=== PATIENT | female | born 1970 | race Caucasian/White ===

== ENCOUNTER 2017-03-23 07:46 | Emergency (ER) | payer MEDICAID ==
[~2017-03-23] VITALS: Ht 154.9 cm; Wt 68.0 kg
[2017-03-23 07:51] VITALS: BP 128/98
--- NOTE | 2017-03-23 07:55 | NUR ---
Patient ambulated to bed 03.
--- NOTE | 2017-03-23 07:59 | NUR ---
PATIENT PRESENTS TO ED WITH C/O COUGH X2 WEEKS . PT STATES THE COUGH IS NON-PRODUCTIVE. PT ALSO STATES SHE NOTICED HER RIGHT EYE WAS RED WELL THIS AM . DENIES N/V/D; SKIN IS PINK/WARM/DRY; AAOX4 WITH EVEN AND STEADY GAIT; LUNGS CLEAR BL; HR EVEN AND REGULAR; PT DENIES ANY FEVER, CP OR SOB AT THIS TIME; PATIENT C/O HEADACHE PAIN OF 5/10 AT THIS TIME; VSS; PATIENT POSITIONED FOR COMFORT; HOB ELEVATED; BEDRAILS UP X2; BED DOWN. ER MD MADE AWARE OF PT STATUS.
--- NOTE | 2017-03-23 08:09 | NUR ---
X-RAY AT BEDSIDE.
--- NOTE | 2017-03-23 08:45 | NUR ---
PT RESTING QUIETLY ON [place].
--- NOTE | 2017-03-23 09:11 | NUR ---
[place]. EVALUATING PT AT BEDSIDE.
--- NOTE | 2017-03-23 09:11 | NUR ---
Dr. Mendoza evaluating patient at bedside.
[2017-03-23] MEDS ORDERED: KETOROLAC 60 MG/2 ML VIAL IM ONE (09:15)
[2017-03-23] MEDS ORDERED: KETOROLAC 60 MG/2 ML VIAL IM SCH (09:22)
--- NOTE | 2017-03-23 09:30 | NUR ---
MEDICATION ADMINISTERED ORDERED.
[2017-03-23 09:43] VITALS: BP 128/82
--- NOTE | 2017-03-23 09:44 | NUR ---
Patient discharged with v/s stable. Written and verbal after care instructions given and explained. Patient alert, oriented and verbalized understanding of instructions. Ambulatory with steady gait. All questions addressed prior to discharge. ID band removed. Patient advised to follow up with PMD. Rx of PREDNISONE AND MOTRIN given. Patient educated on indication of medication including possible reaction and side effects. Opportunity to ask questions provided and answered.
== END 2017-03-23 09:44 | disposition home or self-care (01) ==
LOC: MED 07:46
DX: J11.1 Influenza due to unidentified influenza virus with other respiratory manifestations (principal)
CPT/HCPCS: 71010; 81002; 81025; 96372; 99283; J1885; Q0092

== ENCOUNTER 2020-10-12 13:13 | Emergency (ER) | payer MEDICAID ==
[~2020-10-12] VITALS: Ht 152.4 cm; Wt 71.7 kg
[2020-10-12 13:54] VITALS: BP 137/76
--- NOTE | 2020-10-12 14:00 | NUR ---
DIZZINESS SINCE LAST NIGHT, DENIES N/V. 5/10 PRESSURE IN CHEST. MED HX: DENIES RX: DENIES NKA
[2020-10-12] MEDS ORDERED: MECLIZINE 25 MG TAB PO ONE (14:20)
[2020-10-12 14:48] LABS: BASOPHILS % (AUTO) 0.4 % (0.0-2.0); EOSINOPHILS # (AUTO) 0.1 K/uL (0-0.4); EOSINOPHILS % (AUTO) 1.8 % (0.0-4.0); HEMATOCRIT 38.1 % (36-48); HEMOGLOBIN 12.6 g/dL (12.0-16.0); LYMPHOCYTES # (AUTO) 1.9 K/uL (2.5-16.5); LYMPHOCYTES % (AUTO) 32.3 % (20.5-51.1); MEAN CORPUSCULAR HEMOGLOBIN 31 pg (27-31); MEAN CORPUSCULAR HGB CONC 33 g/dL (33-37); MEAN CORPUSCULAR VOLUME 92.8 fL (80-94); MONOCYTES # (AUTO) 0.5 K/uL (0.8-1.0); MONOCYTES % (AUTO) 8.8 % (1.7-9.3); NEUTROPHILS # (AUTO) 3.4 K/uL (1.8-7.7); NEUTROPHILS % (AUTO) 56.7 % (42.2-75.2); PLATELET COUNT (AUTO) 244 K/uL (140-450); RED BLOOD CELL COUNT(AUTO) 4.11 MIL/uL (4.20-5.40); RED CELL DISTRIBUTION WIDTH 12.8 % (11.6-13.7); WHITE BLOOD COUNT (AUTO) 5.9 K/uL (4.8-10.8)
[2020-10-12 15:58] LABS: APPEARANCE,URINE CLEAR (CLEAR); BILIRUBIN,URINE NEGATIVE (NEGATIVE); BLOOD, URINE NEGATIVE (NEGATIVE); COLOR,URINE YELLOW (YELLOW); LEUKOCYTE ESTERASE ,URINE NEGATIVE (NEGATIVE); NITRITE, URINE NEGATIVE (NEGATIVE); PH,URINE 5.5 (5.0-9.0); UGLUCOSE NEGATIVE (NEGATIVE)
[2020-10-12 16:26] LABS: ALBUMIN 4.3 g/dL (3.4-5.0); ANION GAP 13.3 (8-16); CARBON DIOXIDE 26.1 mmol/L (21-32); CREATININE 0.6 mg/dL (0.6-1.3); POTASSIUM 3.4 mmol/L (3.5-5.1); TOTAL BILIRUBIN 0.2 mg/dL (0.0-1.0)
[2020-10-12 16:30] VITALS: BP 137/76
== END 2020-10-12 16:30 | disposition home or self-care (01) ==
LOC: MED 13:13
DX: R42 Dizziness and giddiness (principal); R07.9 Chest pain, unspecified; H81.10 Benign paroxysmal vertigo, unspecified ear
CPT/HCPCS: 36415; 71045; 80053; 81003; 81025; 83690; 84484; 85025; 93005; 99285; J8597

== ENCOUNTER 2021-07-07 12:24 | Emergency (ER) | payer MEDICAID, SELFPAY ==
[~2021-07-07] VITALS: Ht 152.4 cm; Wt 71.7 kg
[2021-07-07 12:45] VITALS: BP 127/67
--- NOTE | 2021-07-07 13:04 | NUR ---
COLLECTED [facility], WALKED TO LAB.
[2021-07-07 14:11] VITALS: BP 127/67
--- NOTE | 2021-07-07 14:12 | NUR ---
Patient discharged with v/s stable. Written and verbal after care instructions given and explained. Patient verbalized understanding. Ambulatory with steady gait. All questions addressed prior to discharge. Advised to follow up with PMD.
== END 2021-07-07 14:12 | disposition home or self-care (01) ==
LOC: MED 12:24
DX: R05 Cough (principal); R19.7 Diarrhea, unspecified; M79.10 Myalgia, unspecified site; Z20.822 Contact with and (suspected) exposure to COVID-19
CPT/HCPCS: 99283

== ENCOUNTER 2022-12-28 09:15 | Emergency (ER) | payer OTHER ==
[~2022-12-28] VITALS: Ht 152.4 cm; Wt 24.9 kg
[2022-12-28 09:29] VITALS: BP 122/70
[2022-12-28] MEDS ORDERED: methylPREDNISolone SS 125 MG/2 ML VIAL ONE (10:59)
[2022-12-28] MEDS ORDERED: WATER STERILE 10 ML MC ONE (10:59)
--- NOTE | 2022-12-28 10:59 | NUR ---
52 y/o F BIB self from home c/o allergic reaction last night after dinner. Pt states ate chicken, rice, soda last night and began having lip swelling and bilateral hand intchiness. Denies sore throat, SOB, chest pain. Denies known drug or food allergies at home. [place] 0730 this morning with minor relief. PMH/Sx/Meds: Denies NKDA
--- NOTE | 2022-12-28 11:00 | NUR ---
Per patient, Gal (son) en route for transportation home.
[2022-12-28] MEDS: diphenhydrAMINE 50 MG/ML VIAL IM ONE (11:03)
[2022-12-28] MEDS: methylPREDNISolone SS 125 MG in WATER STERILE 2 ML IM ONE (11:04)
[2022-12-28] MEDS ORDERED: BEN50 PO (11:15)
[2022-12-28] MEDS ORDERED: PRED20TA5 PO (11:15)
--- NOTE | 2022-12-28 11:24 | NUR ---
Patient discharged with v/s stable. Written and verbal after care instructions given and explained. Patient alert, oriented and verbalized understanding of instructions. Ambulatory with steady gait. All questions addressed prior to discharge. ID band removed. Patient advised to follow up with PMD. Rx of BENADRYL, PREDNISONE given. Patient educated on indication of medication including possible reaction and side effects. Opportunity to ask questions provided and answered.
== END 2022-12-28 11:24 | disposition home or self-care (01) ==
LOC: MED 09:15
DX: T78.49XA Other allergy, initial encounter (principal); Z90.49 Acquired absence of other specified parts of digestive tract; Z98.890 Other specified postprocedural states; X58.XXXA Exposure to other specified factors, initial encounter
CPT/HCPCS: 96372; 99284; J1200; J2930